=== PATIENT | male | born 1970 | race Caucasian/White ===

== ENCOUNTER 2024-09-03 09:55 | Day surgery (SDC) | payer MEDICARE, OTHER ==
[2024-09-03] MEDS ORDERED: LIDOCAINE HCL/MPF 1% 30 ML VIAL IJ ONE (10:43)
[2024-09-03] MEDS ORDERED: SEVOFLURANE 250 ML BOTTLE IH ONE (10:43)
[2024-09-03] MEDS ORDERED: CELLULOSE,OXIDIZED 1 EACH EACH MC ONE (10:43)
[2024-09-03] MEDS ORDERED: CELLULOSE,OXIDIZED 1 EA PACK MC ONE (10:43)
[2024-09-03] MEDS ORDERED: CELLULOSE,OXIDIZED 1 PKT EACH MC ONE (10:43)
[2024-09-03] MEDS ORDERED: ROPIVACAINE HCL 0.5% 5 MG/ML 30ML VIAL ONE (10:44)
[2024-09-03] MEDS ORDERED: INSULIN REGULAR, HUMAN 100 UNIT/ML 10 ML VIAL ONE (11:50)
[2024-09-03] MEDS ORDERED: DEXTROSE 50%-WATER 50 ML DISP.SYRIN ONE (11:52)
[2024-09-03] MEDS ORDERED: DEXTROSE 50%-WATER 50 ML DISP.SYRIN IVP PRN (16:00)
[2024-09-03 17:47] LABS: CALCIUM, SERUM 8.6 mg/dL (8.5-10.1); CREATININE 7.2 mg/dL (0.6-1.3); POTASSIUM 6.1 mmol/L (3.5-5.1)
== END 2024-09-03 19:00 | disposition home or self-care (01) ==
LOC: DS 09:55 → MED 16:21 → UNDOADMIN 16:21 → DS 19:00 → UNDODISIN 19:15
PROVIDERS: ATTEND Surgery Vascular Surgery
DX: T82.858A Stenosis of other vascular prosthetic devices, implants and grafts, initial encounter (principal); N18.6 End stage renal disease; Z88.8 Allergy status to other drugs, medicaments and biological substances; Z79.4 Long term (current) use of insulin; Z79.899 Other long term (current) drug therapy; Z99.2 Dependence on renal dialysis; Y83.1 Surgical operation with implant of artificial internal device as the cause of abnormal reaction of the patient, or of later complication, without mention of misadventure at the time of the procedure
CPT/HCPCS: 36832; 80048; 84132 ×2; 36415; 82962 ×9; J2704; J1815; J3490 ×3; J1644; J2795; C1769; A6209; G0378; J7060